=== PATIENT | female | born 1985 ===

== ENCOUNTER 2017-09-09 15:31 | Emergency (ER) | payer OTHER ==
[2017-09-09 15:41] VITALS: BP 133/92; PULSE 70; RESP 18; TEMP 98.3; O2SAT 99
--- NOTE | 2017-09-09 15:56 | ED PDOC ---
HPI: General Adult Time Seen by Provider: 09/09/17 15:45 Chief Complaint (Nursing): ENT Problem Chief Complaint (Provider): Right ear pain History Per: Patient, Rn Paralegal (Luanne LOCKETT at bedside for Kyrgyz translation) Onset/Duration Of Symptoms: Days (2) Additional Complaint(s): Patient is a 31 y/o female with no significant past medical history presenting to the emergency department for right ear pain ongoing for two days. Patient reports feeling foreign body sensation present in her right ear that started 2 days ago when patient believes that an insect crawled into her ear. She denies fever or other complaints. Patient states when she tried to clean out her ear yesterday she noticed small amount of blood with no discharge. She does report slight muffled hearing. Patient was evaluated yesterday at [facility] for the same complaint. A foreign body was identified in her right ear and patient was told it could not be retrieved. Patient was referred to an ENT specialist for its removal but she states she cannot afford the visit so she came to this ED today. Patient was prescribed oxycodone and antibiotic eardrops when seen yesterday at [facility], [place]. She states she is currently taking these meds. PCP: none Past Medical History Reviewed: Historical Data, Nursing Documentation, Vital Signs Vital Signs: Last Vital Signs Temp 98.3 F 09/09/17 15:37 Pulse 70 09/09/17 15:37 Resp 18 09/09/17 15:37 BP 133/92 H 09/09/17 15:37 Pulse Ox 99 09/09/17 16:02 - Medical History PMH: No Chronic Diseases - Surgical History Surgical History: No Surg Hx - Family History Family History: States: No Known Family Hx - Living Arrangements Living Arrangements: With Family - Social History Current smoker - smoking cessation education provided: No Alcohol: None Drugs: Denies - Home Medications Home Medications: Ambulatory Orders Medication Instructions Recorded Neomycin/Polymyxin/Hydrocortis 2 drop QID #10 bottle 09/08/17 [Cortisporin Otic Susp] oxyCODONE/Acetaminophen [Percocet 1 tab PO QID PRN #12 tab 09/08/17 5/325 mg Tab] - Allergies Allergies/Adverse Reactions: Allergies Allergy/AdvReac Type Severity Reaction Status Date / Time No Known Allergies Allergy Verified 09/09/17 15:37 Review of Systems ROS Statement: Except As Marked, All Systems Reviewed And Found Negative Constitutional: Negative for: Fever ENT: Positive for: Ear Pain (right) Gastrointestinal: Negative for: Nausea, Vomiting Neurological: Negative for: Headache, Dizziness Physical Exam - Reviewed Nursing Documentation Reviewed: Yes Vital Signs Reviewed: Yes - Physical Exam Appears: Positive for: Well, Non-toxic, No Acute Distress Head Exam: Positive for: ATRAUMATIC, NORMAL INSPECTION, NORMOCEPHALIC Skin: Positive for: Normal Color, Warm, Dry Eye Exam: Positive for: Normal appearance ENT: Positive for: Other (Foreign body, possibly an insect, suspected in right auditory canal, visualized to be very deep in the canal. Abrasions also noted to canal with no active bleeding or exudate) Neck: Positive for: Normal Cardiovascular/Chest: Positive for: Regular Rate, Rhythm Respiratory: Positive for: Normal Breath Sounds. Negative for: Accessory Muscle Use, Respiratory Distress Neurologic/Psych: Positive for: Alert, Oriented (x3) - ECG O2 Sat by Pulse Oximetry: 99 (RA) Pulse Ox Interpretation: Normal Medical Decision Making Medical Decision Makin:00 31 year old with FB to right ear. Attempt was made to remove the foreign body with alligator forceps but unable to retrieve foreign body as it is very deep in AC. Patient is already on antibiotic drops and taking pain medication. She was strongly advised to follow up with an ENT specialist. ~ Scribe Attestation: Documented by Jacy Carl, acting as a scribe for BONI Hartley. Provider Scribe Attestation: All medical record entries made by the Scribe were at my direction and personally dictated by me. I have reviewed the chart and agree that the record accurately reflects my personal performance of the history, physical exam, medical decision making, and the department course for this patient. I have also personally directed, reviewed, and agree with the discharge instructions and disposition. Disposition - Clinical Impression Clinical Impression: Right ear pain, Foreign body in ear - Patient ED Disposition Is Patient to be Admitted: No Counseled Patient/Family Regarding: Diagnosis, Need For Followup - Disposition Referrals: John Morris MD [Staff Provider] - Disposition: Routine/Home Disposition Time: 16:24 Condition: STABLE Additional Instructions: Continue current medications. Follow up with specialist or seek further medical attention at [facility] or [facility] and dentistry [facility] ([facility]). Instructions: Ear Foreign Body (ED) Forms: [facility] (Kyrgyz) Print Language: [place]
== END 2017-09-09 16:30 | disposition home or self-care (01) ==
LOC: H.ER 15:31
DX: T16.1XXA Foreign body in right ear, initial encounter (principal)